=== PATIENT | male | born 1950 | race African-American/Black ===

== ENCOUNTER 2017-03-21 16:02 | Emergency (ER) | payer MEDICAID ==
[~2017-03-21] VITALS: Ht 172.7 cm; Wt 75.0 kg
[2017-03-21 16:05] VITALS: BP 164/86
== END 2017-03-21 19:15 | disposition left against medical advice (07) ==
LOC: ER 16:44
DX: Z53.21 Procedure and treatment not carried out due to patient leaving prior to being seen by health care provider (principal)

== ENCOUNTER 2019-06-01 21:48 | Emergency (ER) | payer MEDICARE, MEDICAID ==
[~2019-06-01] VITALS: Ht 172.7 cm; Wt 73.0 kg
[2019-06-01 22:24] VITALS: BP 113/75
== END 2019-06-02 00:15 | disposition home or self-care (01) ==
LOC: ER 21:48
DX: B35.3 Tinea pedis (principal); L03.116 Cellulitis of left lower limb; E78.00 Pure hypercholesterolemia, unspecified; I10 Essential (primary) hypertension; F17.210 Nicotine dependence, cigarettes, uncomplicated; Z86.19 Personal history of other infectious and parasitic diseases
CPT/HCPCS: 82962; 99283

== ENCOUNTER 2019-09-15 08:49 | Inpatient (IN) | payer MEDICARE, MEDICAID ==
[~2019-09-15] VITALS: Ht 177.8 cm; Wt 77.1 kg
[2019-09-15 10:18] LABS: BASOPHILS % 0.7 % (0.0-2.0); HEMATOCRIT. 42.4 % (42.0-52.0); HEMOGLOBIN. 13.9 g/dL (14.0-18.0); LYMPHOCYTES % 17.5 % (20.0-50.0); MEAN CORPUSCULAR HEMOGLOBIN 27.5 pg (28.0-32.0); MEAN CORPUSCULAR VOLUME 83.9 fL (80.0-94.0); MEAN PLATELET VOLUME 10.2 fl (7.4-10.4); MONOCYTES % 8.9 % (2.0-8.0); NEUTROPHILS % 71.9 % (40.0-76.0); PLATELET 239 x1000/uL (130-400); RED BLOOD CELL COUNT 5.05 mill/uL (4.7-6.1); RED CELL DISTRIBUTION WIDTH 15.6 % (11.6-14.6)
[2019-09-15 10:25] LABS: CHLORIDE 107 mEq/L (98-107)
[2019-09-15] MEDS ORDERED: ASPIRIN 325MG EC TABLET PO ONE (11:30)
[2019-09-15 14:53] LABS: CLARITY URINE CLEAR (CLEAR); COLOR URINE RED (YELLOW); KETONES URINE NEGATIVE (NEGATIVE); LEUKOCYTE ESTERASE URINE NEGATIVE (NEGATIVE); NITRITE URINE NEGATIVE (NEGATIVE); OCCULT BLOOD URINE 3+ (NEGATIVE); PH URINE 5.5 (4.5-8.0); PROTEIN URINE 1+ (NEGATIVE); SPECIFIC GRAVITY URINE 1.004 (1.005-1.030); UROBILINOGEN URINE 0.2 E.U./dL (0.2-1.0)
[2019-09-15] MEDS ORDERED: TRAMADOL 50MG TABLET PO PRN (15:45)
[2019-09-15] MEDS ORDERED: IPRATROPIUM/ALBUTEROL 0.5-3(2.5)MG/3ML NEB NEB PRN (15:45)
[2019-09-15] MEDS ORDERED: NITROGLYCERIN 0.4MG TABLET SL SL PRN (15:45)
[2019-09-15] MEDS ORDERED: MAGNESIUM/ALUMINUM HYDROXIDE/SIMETHICONE 30ML UDC PO PRN (15:45)
[2019-09-15] MEDS ORDERED: NA PHOS,M-B/NA PHOS,DI-BA ENEMA 118ML PR PRN (15:45)
[2019-09-15] MEDS ORDERED: MORPHINE SULFATE 2 MG/ML CPJ (NOT FOR IM USE) IV PRN (15:45)
[2019-09-15] MEDS ORDERED: DOCUSATE SODIUM 100MG CAPSULE PO PRN (15:45)
[2019-09-15] MEDS ORDERED: ONDANSETRON HCL 4MG/2ML INJ IV PRN (15:45)
[2019-09-15] MEDS ORDERED: CLONIDINE 0.1MG TABLET PO PRN (15:45)
[2019-09-15] MEDS ORDERED: ACETAMINOPHEN 325MG TABLET PO PRN (15:45)
[2019-09-15] MEDS ORDERED: POTASSIUM CHLORIDE 20MEQ TABLET SR PO SCH (15:45)
[2019-09-15 18:19] LABS: ETHANOL BLOOD < 10 mg/dL
[2019-09-15 18:23] LABS: LDL CHOLESTEROL 31 mg/dL (5-100)
[2019-09-15 18:25] LABS: HDL CHOLESTEROL 49 mg/dL (40-59)
[2019-09-15] MEDS ORDERED: CEFTRIAXONE 1 G PREMIX 50 ML IV SCH ×2 (20:00→23:00)
[2019-09-15 20:40] VITALS: BP 134/66
[2019-09-15] MEDS ORDERED: ERGO400C PO (21:16)
[2019-09-15] MEDS ORDERED: BENA20TA10 PO (21:16)
[2019-09-15] MEDS ORDERED: ATOR20TA PO (21:16)
[2019-09-15] MEDS ORDERED: ASPI-1158 PO (21:16)
[2019-09-15] MEDS ORDERED: ZOLPIDEM TARTRATE 5MG TABLET PO PRN (21:30)
[2019-09-15] MEDS: LISINOPRIL 20MG TABLET PO SCH (22:54)
[2019-09-15] MEDS: FAMOTIDINE 40MG TABLET PO SCH (22:55)
[2019-09-15] MEDS: ENOXAPARIN 40MG/0.4ML SYR SUBCUT SCH (22:55)
[2019-09-15] MEDS ORDERED: LEVOFLOXACIN 500MG PREMIX 100 ML IV SCH (23:30)
[2019-09-16] VITALS: BP 135/61
[2019-09-16 02:32] LABS: CREATINE KINASE MB FRACTION 3.2 ng/mL (0.5-3.6)
[2019-09-16 04:00] VITALS: BP 136/63
[2019-09-16] MEDS: TAMSULOSIN HCL 0.4MG SR CAPSULE PO SCH (10:17)
[2019-09-16] MEDS: LISINOPRIL 20MG TABLET PO SCH ×2 (10:17→20:56)
[2019-09-16] MEDS: DUTASTERIDE 0.5MG CAPSULE PO SCH (10:17)
[2019-09-16] MEDS: FAMOTIDINE 40MG TABLET PO SCH ×2 (10:18→20:56)
[2019-09-16] MEDS: ASPIRIN 325MG EC TABLET PO SCH (11:17)
[2019-09-16 12:00] VITALS: BP 138/79
[2019-09-16 12:03] LABS: CREATINE KINASE MB FRACTION 2.8 ng/mL (0.5-3.6)
[2019-09-16 13:00] VITALS: BP 134/71
[2019-09-16] MEDS: AMLODIPINE 2.5MG TABLET PO SCH ×2 (13:17→20:56)
[2019-09-16] MEDS: GUAIFENESIN 200MG/10ML SUGAR FREE UDC PO PRN ×3 (14:46→22:47)
[2019-09-16 15:37] LABS: *AMPHETAMINES SCREEN URINE PRESUMTIVE POSITIVE (NEGATIVE)
[2019-09-16 15:38] LABS: *BARBITURATES SCREEN URINE NEGATIVE (NEGATIVE); *BENZODIAZEPINES SCREEN URINE PRESUMTIVE POSITIVE (NEGATIVE); *COCAINE SCREEN URINE NEGATIVE (NEGATIVE); METHADONE URINE SCREEN NEGATIVE (NEGATIVE); OPIATES URINE SCREEN PRESUMTIVE POSITIVE (NEGATIVE)
[2019-09-16 15:39] LABS: CANNABINOID URINE SCREEN NEGATIVE (NEGATIVE); PHENCYCLIDINE URINE SCREEN NEGATIVE (NEGATIVE)
[2019-09-16 16:00] VITALS: BP 113/60
[2019-09-16 20:00] VITALS: BP 129/73
[2019-09-16] MEDS: ENOXAPARIN 40MG/0.4ML SYR SUBCUT SCH (20:56)
[2019-09-16] MEDS: CEFTRIAXONE 1 G PREMIX 50 ML IV SCH (22:29)
[2019-09-17 00:49] VITALS: BP 120/60
[2019-09-17] MEDS: LEVOFLOXACIN 500MG PREMIX 100 ML IV SCH ×2 (01:33→23:09)
[2019-09-17 04:00] VITALS: BP 126/65
[2019-09-17 07:23] LABS: BASOPHILS % 0.7 % (0.0-2.0); EOSINOPHILS % 2.8 % (0.0-5.0); HEMATOCRIT. 38.2 % (42.0-52.0); HEMOGLOBIN. 12.6 g/dL (14.0-18.0); LYMPHOCYTES % 24.7 % (20.0-50.0); MEAN CORPUSCULAR HEMOGLOBIN 27.4 pg (28.0-32.0); MONOCYTES % 13.6 % (2.0-8.0); NEUTROPHILS % 58.2 % (40.0-76.0); PLATELET 221 x1000/uL (130-400); RED CELL DISTRIBUTION WIDTH 15.8 % (11.6-14.6)
[2019-09-17 07:32] LABS: CHLORIDE 108 mEq/L (98-107)
[2019-09-17 07:39] LABS: LDL CHOLESTEROL 30 mg/dL (5-100)
[2019-09-17 07:40] LABS: HDL CHOLESTEROL 40 mg/dL (40-59)
[2019-09-17 07:41] LABS: CREATINE KINASE 381 IU/L (39-308)
[2019-09-17 07:48] LABS: CREATINE KINASE MB FRACTION 1.3 ng/mL (0.5-3.6)
[2019-09-17 08:00] VITALS: BP 106/65
[2019-09-17] MEDS: TAMSULOSIN HCL 0.4MG SR CAPSULE PO SCH (09:41)
[2019-09-17] MEDS: GUAIFENESIN 200MG/10ML SUGAR FREE UDC PO PRN ×2 (09:41→21:14)
[2019-09-17] MEDS: ASPIRIN 325MG EC TABLET PO SCH (09:42)
[2019-09-17] MEDS: AMLODIPINE 2.5MG TABLET PO SCH ×2 (09:42→20:44)
[2019-09-17] MEDS: LISINOPRIL 20MG TABLET PO SCH ×2 (09:42→20:45)
[2019-09-17] MEDS: DUTASTERIDE 0.5MG CAPSULE PO SCH (09:42)
[2019-09-17] MEDS: FAMOTIDINE 40MG TABLET PO SCH ×2 (09:42→21:14)
[2019-09-17 12:00] VITALS: BP 116/60
[2019-09-17 16:00] VITALS: BP 105/69
[2019-09-17 20:00] VITALS: BP 102/48
[2019-09-17] MEDS: ENOXAPARIN 40MG/0.4ML SYR SUBCUT SCH (21:14)
[2019-09-17] MEDS: CEFTRIAXONE 1 G PREMIX 50 ML IV SCH (23:13)
[2019-09-18] VITALS: BP 110/50
[2019-09-18] MEDS: LEVOFLOXACIN 500MG PREMIX 100 ML IV SCH (01:03)
[2019-09-18 04:00] VITALS: BP 130/56
[2019-09-18 08:00] VITALS: BP 109/57
[2019-09-18] MEDS: ASPIRIN 325MG EC TABLET PO SCH (09:00)
[2019-09-18] MEDS: AMLODIPINE 2.5MG TABLET PO SCH ×2 (09:00→21:51)
[2019-09-18] MEDS: LISINOPRIL 20MG TABLET PO SCH ×2 (09:00→21:51)
[2019-09-18] MEDS: DUTASTERIDE 0.5MG CAPSULE PO SCH (09:27)
[2019-09-18] MEDS: TAMSULOSIN HCL 0.4MG SR CAPSULE PO SCH (09:27)
[2019-09-18 12:00] VITALS: BP 120/67
[2019-09-18] MEDS: FAMOTIDINE 40MG TABLET PO SCH ×2 (12:18→21:51)
[2019-09-18] MEDS: LORAZEPAM 0.5MG TABLET PO PRN ×2 (14:20→21:59)
[2019-09-18 18:00] VITALS: BP 115/66
[2019-09-18 20:00] VITALS: BP 122/62
[2019-09-18] MEDS: ENOXAPARIN 40MG/0.4ML SYR SUBCUT SCH (21:51)
[2019-09-18] MEDS: CEFTRIAXONE 1 G PREMIX 50 ML IV SCH (21:52)
[2019-09-19 00:01] VITALS: BP 120/68
[2019-09-19] MEDS: LEVOFLOXACIN 500MG PREMIX 100 ML IV SCH (00:22)
[2019-09-19 04:00] VITALS: BP 124/65
[2019-09-19 08:00] VITALS: BP 99/49
[2019-09-19] MEDS: AMLODIPINE 2.5MG TABLET PO SCH (09:00)
[2019-09-19] MEDS: LISINOPRIL 20MG TABLET PO SCH (09:00)
[2019-09-19] MEDS ORDERED: REGADENOSON 0.4 MG/5 ML IV ONE ×2 (09:00→12:42)
[2019-09-19] MEDS ORDERED: REGADENOSON 0.4 MG/5 ML IV SCH (09:15)
[2019-09-19] MEDS ORDERED: DOBUTAMINE 250MG PREMIX 250 ML IV SCH (13:00)
[2019-09-19] MEDS ORDERED: DOBUTAMINE 250MG PREMIX 250 ML IV ONE (13:04)
[2019-09-19] MEDS: DUTASTERIDE 0.5MG CAPSULE PO SCH (15:14)
[2019-09-19] MEDS: TAMSULOSIN HCL 0.4MG SR CAPSULE PO SCH (15:14)
[2019-09-19] MEDS: FAMOTIDINE 40MG TABLET PO SCH (15:15)
[2019-09-19] MEDS: ASPIRIN 325MG EC TABLET PO SCH (15:15)
[2019-09-19 16:00] VITALS: BP 101/57
[2019-09-19 16:49] VITALS: BP 109/49
[2019-09-19] MEDS: LORAZEPAM 0.5MG TABLET PO PRN (18:13)
== END 2019-09-19 19:20 | disposition home health service (06) | DRG 313 ==
LOC: ER 08:49 → 7WST 12:10 → SUPCPDRO 15:38 → ENRESERV 20:09
PROVIDERS: ADMIT Internal Medicine; ATTEND Internal Medicine
DX: R07.89 Other chest pain (principal); D64.9 Anemia, unspecified; E78.5 Hyperlipidemia, unspecified; E87.6 Hypokalemia; F17.210 Nicotine dependence, cigarettes, uncomplicated; I10 Essential (primary) hypertension; R33.8 Other retention of urine; N40.1 Benign prostatic hyperplasia with lower urinary tract symptoms; D63.8 Anemia in other chronic diseases classified elsewhere; E78.00 Pure hypercholesterolemia, unspecified; F15.10 Other stimulant abuse, uncomplicated; I49.3 Ventricular premature depolarization; F14.10 Cocaine abuse, uncomplicated; B19.20 Unspecified viral hepatitis C without hepatic coma; Z79.899 Other long term (current) drug therapy; Z79.82 Long term (current) use of aspirin
CPT/HCPCS: 36415; 71045; 78452; 80053; 80061; 80305; 80320; 81003; 82550; 82553; 83036; 83735; 83880; 84153; 84443; 84484; 85025; 85379; 93005; 93017; 93306; 93970; 96365; 99291; A9500; J0696; J1250; J1650; J1956; J2785; J7040; G0103; G0480